=== PATIENT | female | born 2000 | race Caucasian/White ===

== ENCOUNTER 2023-01-03 15:36 | Emergency (ER) | payer OTHER, SELFPAY ==
--- NOTE | ~2023-01-03 | XR_ITS ---
XR knee RT min 4V 01/03/2023 16:21 INDICATION: Right knee pain after injury PROCEDURE: 4 views right knee COMPARISON: 03/18/2015 FINDINGS: Fracture, dislocation or subluxation is not identified. No significant joint effusion. The soft tissues appear within normal limits. No foreign bodies are identified. IMPRESSION: 1: NO ACUTE BONE OR JOINT ABNORMALITY IDENTIFIED. Reviewed, dictated and finalized at location L.
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
[2023-01-03 15:52] VITALS: BP 102/59; PULSE 106; RESP 16; TEMP 37.7; O2SAT 100
[2023-01-03 15:55] VITALS: BP 102/59; PULSE 106; RESP 16; TEMP 37.7; O2SAT 100
== END 2023-01-03 17:05 | disposition home or self-care (01) ==
PROVIDERS: Emergency Provider Nurse Practitioner
DX: S80.01XA Contusion of right knee, initial encounter (principal); W27.8XXA Contact with other nonpowered hand tool, initial encounter; Y99.0 Civilian activity done for income or pay
CPT/HCPCS: 73564; 99213; G0463

== ENCOUNTER 2024-05-08 07:23 | Emergency (ER) | payer OTHER, SELFPAY ==
[2024-05-08] VITALS (39 sets, daily range): BP systolic 99–145; BP diastolic 64–97; PULSE 64–99; RESP 4–24; TEMP 36.3–37; O2SAT 83–100
--- NOTE | ~2024-05-08 | XR_ITS ---
XR wrist RT 2V Ordering provider: Rick Lopez MD History: . reduction . Comparison: May 08, 2024 FINDINGS: BONES: Comminuted fracture in the distal radius extending to the joint space. Status post reduction. Fracture of the ulnar styloid. The angulation is corrected. Status post placement in a cast. JOINT SPACES: Normal. SOFT TISSUES: Normal. IMPRESSION: Comminuted fracture in the distal radius status post reduction with placement in a cast. Reviewed, dictated and finalized at location A. IMPRESSION: Comminuted fracture in the distal radius status post reduction with placement i n a cast.
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
--- NOTE | ~2024-05-08 | XR_ITS ---
EXAMINATION: XR knee RT 3V DATE: 05/08/2024 08:04 INDICATION: Trauma. Right suprapatellar pain. TECHNIQUE: Anteroposterior, oblique and crosstable lateral views of the right knee were obtained COMPARISON: None. FINDINGS: Alignment is normal. No fracture. Joint spaces appear normal on the nonweightbearing imaging with no erosions or osteophytosis. No joint effusion/layering lipohemarthrosis. Soft tissues are unremarkabl e. IMPRESSION: 1. Negative right knee radiographs. Reviewed, dictated and finalized at location A.
[2024-05-08] MEDS: MORPHINE SULFATE (*CRX) 4 MG/ML INJ IV PUSH (07:53)
[2024-05-08] MEDS: PROPOFOL IV EMULSION 200 MG/20 ML VIAL 60 MG IV PUSH (09:10)
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
[2024-05-08] MEDS: HYDROcodone/acetaminophen (*CRX) 5-325 MG TABLET 1 TAB PO (09:57)
[2024-05-08] MEDS: diazePAM INJ (*CRX) 10 MG/2 ML SYRINGE 5 MG IV PUSH (10:43)
== END 2024-05-08 12:42 | disposition home or self-care (01) ==
PROVIDERS: Emergency Provider Emergency Medicine
DX: S59.291A Other physeal fracture of lower end of radius, right arm, initial encounter for closed fracture (principal); S52.611A Displaced fracture of right ulna styloid process, initial encounter for closed fracture; V03.00XA Pedestrian on foot injured in collision with car, pick-up truck or van in nontraffic accident, initial encounter
CPT/HCPCS: 25605; 73100; 73562; 96374; 96375; 99285; A4565; A9270; J2270; J2704; J3360

== ENCOUNTER 2024-05-15 02:24 | Day surgery (SDC) | payer OTHER, SELFPAY ==
--- NOTE | 2024-05-10 14:48 | PC.NURSE ---
Report to the Outpatient Waiting Room, entrance under the green pavilion located off [facility], at time _1100_ on date _[id number]_. Planned Procedure Time: _1pm_.? Time changes happen often and if your time is changed the preop area will call you the afternoon before. - You and your visitor will be asked to self-screen and do not enter if you have any COVID symptoms. Please call surgeon if you need to reschedule. - A mask is optional within the hospital at this time. Patients may have clear liquids (water, carbonated beverages, clear teas, apple juice) until 3 hours prior to surgery with a maximum of 20 ounces. - No food from midnight until time of surgery and no smoking Take only the following medications with a SIP of water on the morning of surgery: __Hydrocodone if needed. DO NOT STOP ANY OF YOUR OTHER PRESCRIPTION MEDICATIONS PRIOR TO SURGERY EXCEPT THE FOLLOWING Medications to discontinue per physician ____None Date to take last dose Please no make-up, nail liberian, hairspray, perfume, deodorant, or body powder the day of surgery.? No jewelry (including any body piercings) or valuables the day of surgery, leave them at home.? Please take a shower or bath the night before, or the morning of, surgery with an antibacterial soap.? Wear comfortable, loose fitting clothing.? - Jewelry must be removed prior to entering the operating room.? Rings and piercings that are not removed may be cut off. - The hospital will not accept responsibility for valuables.? - Please leave all valuables, including medications, at home the day of surgery. If you are going home after surgery, a licensed garbage truck driver must drive you home.? - NO public transportation without another adult if you receive anesthesia. - We recommend that an adult stay with you for 24 hours following discharge. - We also recommend that you do not drive, make important decision, drink alcoholic beverages, or take any drugs that were not prescribed by your health care provider for at least 24 hours after your discharge time. Follow any additional instructions given to you from your surgeon. Telephone instructions given to ___Madison__and asked if any additional questions and then verbalized understanding. Patient advised to call surgeon office or pre surgery nurse liaison [phone] if any additional questions.
[2024-05-10 14:52] VITALS: BMI 20.6
[2024-05-15] VITALS (11 sets, daily range): BP systolic 109–142; BP diastolic 59–85; PULSE 92–111; RESP 12–17; TEMP 36.4–36.8; O2SAT 97–100
--- NOTE | ~2024-05-15 | XR_ITS ---
EXAMINATION: XR surgery orthopedic DATE: 05/15/2024 14:37 INDICATION: ORIF right wrist fracture TECHNIQUE: 3 fluoroscopic images of the right wrist were obtained during procedure performed by Dr. Min mariscal. Radiologist was not present for the imaging or procedure. The amount of fluoroscopy time used during this procedure was 0.5 minutes. Total DAP was 0.017 mGym^2 COMPARISON: 05/08/2024 FINDINGS: Interval open reduction and external fixation of the comminuted intra-articular fracture of the dista l right radius. The prior dorsal displacement and angulation has been reduced to near-anatomic alignm ent with placement of a volar T plate and screw fixation. No significant interval change in 3-4 mm di straction of an ulnar styloid avulsion fracture which remains unfixed. Normal alignment and joint spa mohini at the visualized portion of the right hand. IMPRESSION: 1. Near-anatomic alignment post open reduction internal fixation of a comminuted intratrochanteric fr acture of the distal right radius. 2. Unchanged 3-4 mm distraction of and ulnar styloid avulsion fracture which remains unfixed. Reviewed, dictated and finalized at location A. IMPRESSION: 1. Near-anatomic alignment post open reduction internal fixation of a comminute d intratrochanteric fracture of the distal right radius. 2. Unchanged 3-4 mm distraction of and ulnar styloid avulsion fracture which re anjelica unfixed.
[2024-05-15] MEDS: ACETAMINOPHEN 500 MG TABLET 1000 MG PO (11:20)
[2024-05-15] MEDS: KETOROLAC 15 MG/ML VIAL (*BKC) IV PUSH (11:20)
[2024-05-15] MEDS: LACTATED RINGERS 1,000 ML 30 ML IV CONT ×2 (11:20→14:54)
[2024-05-15 11:41] LABS: BEDSIDEPREGUCG Negative (Negative)
--- NOTE | 2024-05-15 12:51 | WPDHPUPDATE1 ---
History and Physical Update Update Date/Time: 05/15/24 12:51 History and Physical has been reviewed, including an updated exam of the patient. There are NO changes in the patient's condition. Risks, benefits, and alternatives have been discussed and questions answered. Patient agrees to proceed with procedure.
--- NOTE | 2024-05-15 12:57 | P.PNAN_ITS ---
Anes - Initial Pre Proc Eval Procedure: Operation Date: 05/15/24 13:00 Proposed Procedures p Open Reduction Internal Fixation Right Wrist Fracture - Laci Subramanian MD Date/Time: 05/15/24 12:57 Surgeon: Laci Subramanian MD Pre Op Diagnosis: Rt Wrist Fx Patient Data Age: 23 Gender: F Height: 1.63 m Weight: 51 kg Last Vital Signs Temp 36.8 C 05/15/24 11:20 Pulse 103 H 05/15/24 11:20 Resp 14 05/15/24 11:20 BP 109/59 L 05/15/24 11:20 Pulse Ox 100 05/15/24 11:20 O2 Del Method Room Air 05/15/24 11:20 Allergies Allergy/AdvReac Type Severity Reaction Status Date / Time No Known Allergies Allergy Verified 05/15/24 11:40 Home Medications Medication Instructions Recorded Confirmed Type hydrocodone 5 mg-acetaminophen 325 1 tablet PO Q6H PRN pain #20 tabs 05/10/24 05/10/24 Rx mg tablet tizanidine 2 mg capsule 2 mg PO Q8H PRN muscle spasticity 05/10/24 05/10/24 Rx #14 caps Laboratory Tests 05/15/24 11:39 POC Urine HCG, Qual Negative (Negative) HCG: negative Patient hx anesthesia problems: none Family hx anesthesia problems: none Results Review: All pre-operative results and documents have been reviewed as part of the pre- operative evaluation. [facility], LAT[facility] Past Medical History Medical History Closed fracture of right distal radius Healthy female adult Surgical History Surgical History No history of previous surgery Social History Social History Smoking status: Never smoker Living arrangements: with family Spiritual care concerns: No Anes - Eval Final PreProcedure Day of Procedure 05/15/24 12:57 Patient weight: normal Heart: regular rate and rhythm Lungs: clear to auscultation Airway: Mallampati scale class 1 Neurological: alert and oriented Last oral intake: >/= 8 hours ASA classification: I Emergent: no Anesthetic plan: proceed Anesthesia type and monitoring: general LMA Results Review: All pre-operative results and documents have been reviewed as part of the pre- operative evaluation. Informed Consent: The patient's anesthetic plan and its attendant risks and benefits were discussed with the patient/family/POA. Questions were solicited and answers provided to the satisfaction of the patient/family/POA.
[2024-05-15] MEDS: ceFAZolin 2 GM/D5W 50 ML 2 GM/50 ML BAG IVPB (13:10)
[2024-05-15] MEDS: ONDANSETRON INJ 4 MG/2 ML VIAL IV PUSH (15:12)
[2024-05-15] MEDS: fentaNYL CITRATE INJ (*CRX) 100 MCG/2 ML VIAL 25 MCG IV PUSH (15:25)
--- NOTE | 2024-05-15 15:31 | W.PM.PROC2 ---
Procedure Note - Detailed Date of Procedure 05/15/24 Pre-op Diagnosis Rt Wrist Fx- comminuted with intra-articular extension and displacement. Post-op Diagnosis Same Procedure Performed Open reduction internal fixation right distal radius fracture, intra-articular, comminuted. 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 Comminuted fracture of the distal radius. Close reduction in the emergency room. Alignment improved but still with intra-articular extension, comminution, displacement and angulation. Presents for operative treatment. Findings Comminuted fracture distal radius with more than 4 fragments, intra-articular extension. Description of Procedure After informed consent the operative extremity was marked in the preoperative holding area. Patient received intravenous antibiotics. Patient taken to the operating room where they underwent general anesthesia. Positioned supine on operating table. Time-out performed confirming the patient, patient's site of surgery and the plan. Right upper extremity prepped and draped in the usual sterile surgical fashion using a ChloraPrep skin solution. Hand and wrist exsanguinated and arm tourniquet inflated to 225 mmHg. Standard volar flexor carpi radialis incision utilized. Fifteen blade knife used to make longitudinal incision. Flexor carpi radialis tendon identified tendon sheath incised in line with skin incision. Tendon retracted to protect the neurovascular elements. Floor of the tendon sheath incised with a 15 blade knife. Flexor pollicis retracted medial. pronator quadratus then divided off the watershed line and reflected ulnarward to expose the distal radius and the fracture. Fracture was then reduced provisionally pinned. Image intensification confirm reduction. Fixation achieved with the distal radius volar plate. This was provisionally pinned into place and confirmed with image intensification. Fixation to the proximal fragment with a 3.5 mm screw. Distal fracture fixation achieved with 2.0 mm locking pegs and 2.0 mm fully threaded locking screws for the radial styloid. Fixation was then completed proximally with the remaining 3.5 mm screws. Final reduction of the fracture, alignment of the wrist joint and placement of the hardware verified with image intensification. Wound thoroughly irrigated with antibiotic solution. Pronator repaired with 3 0 Monocryl interrupted suture. Skin closed with interrupted subcutaneous 000 Monocryl interrupted suture and running 000 Monocryl subcuticular stitch. Local anesthetic with 0.5% Marcaine. Sterile dressing applied. Padded dressing and splint then applied. Tourniquet released and good capillary refill noted in the fingers and thumb. Patient awoke from anesthesia, extubated and taken to the recovery room in stable condition. All sponge and instrument counts correct at the end of case. [employer] volar distal radius locking plate. Estimated Blood Loss 5 Tourniquet Time Total Tourniquet Time: 59min Drains No Packing No Pathology None sent Complications None Condition Stable Disposition PACU [facility] Billing Surgery - Charge Forward: Surgery Billing ([id number])
[2024-05-15] MEDS: SCOPOLAMINE 1 MG PATCH 1 PATCH TRANSDERM (15:49)
== END 2024-05-15 17:25 | disposition home or self-care (01) ==
PROVIDERS: Visit Provider Orthopaedic Surgery
PROC: (CPT 25575; principal; 2024-05-15 13:00)
DX: S52.571A Other intraarticular fracture of lower end of right radius, initial encounter for closed fracture (principal); Z79.891 Long term (current) use of opiate analgesic; W23.1XXA Caught, crushed, jammed, or pinched between stationary objects, initial encounter
CPT/HCPCS: 25609; 99199; A9270; C1713; J0690; J1100; J1171; J1885; J2405; J2704; J3010; J7120

== ENCOUNTER 2024-11-15 08:28 | Inpatient (IN) | payer OTHER, SELFPAY ==
[2024-11-15] VITALS (27 sets, daily range): BP systolic 103–126; BP diastolic 47–83; PULSE 71–127; RESP 12–20; TEMP 36.6–37.1; O2SAT 96–100; BMI 19.9
--- NOTE | ~2024-11-15 | XR_ITS ---
EXAMINATION: XR chest 1V portable DATE: 11/16/2024 13:38 INDICATION: Right pneumothorax TECHNIQUE: frontal view of the chest was obtained. COMPARISON: Chest radiograph dated 11/16/2024 at 5:22 AM FINDINGS: No change in position of a right sided chest tube, the proximal side-port which is extrapleural proje cting over the lateral right chest wall. No residual pneumothorax. Lungs are clear with no focal airs pace opacities, pulmonary edema or pleural effusion. Heart size is normal. IMPRESSION: 1. Clear lungs with resolution of the prior tiny right apical pneumothorax. 2. Unchanged right chest tube the proximal side-port of which remains extrapleural projecting over th e lateral right chest wall. Reviewed, dictated and finalized at location A. IMPRESSION: 1. Clear lungs with resolution of the prior tiny right apical pneumothorax. 2. Unchanged right chest tube the proximal side-port of which remains extrapleu ral projecting over the lateral right chest wall.
--- NOTE | ~2024-11-15 | XR_ITS ---
CHEST RADIOGRAPH CLINICAL HISTORY: chest tube insertion; repositioned . COMPARISON: Two prior radiographs performed earlier on the same day TECHNIQUE: Single portable view of the chest. FINDINGS The cardiomediastinal silhouette is unremarkable. Right-sided chest tube in good position with only trace minimal residual pneumothorax (11 mm of separ ation at the right apex). The left hemithorax is unremarkable. IMPRESSION: Right-sided chest tube in good position with only trace minimal residual pneumothorax, as detailed ab ove. Reviewed, dictated and finalized at location A. IMPRESSION: Right-sided chest tube in good position with only trace minimal residual pneumo thorax, as detailed above.
--- NOTE | ~2024-11-15 | XR_ITS ---
EXAMINATION: XR chest 1V portable DATE: 11/16/2024 05:26 INDICATION: Right-sided pneumonia TECHNIQUE: frontal view of the chest was obtained. COMPARISON: Chest radiograph dated 11/15/2024 FINDINGS: The right-sided chest tube has withdrawn with the proximal side port now positioned extrapleurally in the soft tissues at the lateral right chest with there is small amount of soft tissue gas. Decrease in a now tiny right apical pneumothorax. No focal airspace opacities, pulmonary edema pleural effusio n. The cardiomediastinal silhouette is normal. Visualized bones and soft tissues are unremarkable. IMPRESSION: 1. Right chest tube was withdrawn with proximal side-port now extrapleural in the lateral right chest wall. 2. Decrease in a now tiny right pneumothorax. Reviewed, dictated and finalized at location A. IMPRESSION: 1. Right chest tube was withdrawn with proximal side-port now extrapleural in t he lateral right chest wall. 2. Decrease in a now tiny right pneumothorax.
--- NOTE | ~2024-11-15 | XR_ITS ---
EXAMINATION: XR chest 1V portable DATE: 11/17/2024 07:36 INDICATION: Pneumothorax TECHNIQUE: frontal view of the chest was obtained. COMPARISON: Chest radiograph dated 11/16/2024 FINDINGS: Right chest tube is been removed. The lungs are clear with no focal airspace opacities, pulmonary mila ma, pleural effusion or pneumothorax. The cardiomediastinal silhouette is normal. Visualized bones an d soft tissues are unremarkable. IMPRESSION: 1. Interval removal of the right chest tube with now normal chest radiograph. Reviewed, dictated and finalized at location A.
--- NOTE | ~2024-11-15 | XR_ITS ---
XR chest 2V 11/15/2024 09:15 Indication: Chest pain and shortness of breath Procedure: 2 view chest Comparison: No prior studies for comparison. Findings: There is a moderate size right pneumothorax with mediastinal shift to the right. There is l eft basilar atelectasis. No significant effusion. No acute osseous abnormality. Impression: 1: Moderate size right pneumothorax with mediastinal shift to the left. Dr. Tucker Ken discussed with Dr. Filiberto Apple MD at 11/15/2024 9:27 CDT. Reviewed, dictated and finalized at location A. Impression: 1: Moderate size right pneumothorax with mediastinal shift to the left. Dr. Tucker Ken discussed with Dr. Filiberto Apple MD at 11/15/2024 9:27 CDT.
--- NOTE | ~2024-11-15 | XR_ITS ---
XR chest 1V portable Ordering provider: Antonieta Bustos MD History: 24 years Female with . chest tube placement . Comparison: November 16, 2024 FINDINGS/impression: No change from previous examination. The right chest tube is unchanged with the sidehole is seen outs ambrose the chest. No definite pneumothorax seen at this time. Reviewed, dictated and finalized at location A.
--- NOTE | ~2024-11-15 | XR_ITS ---
EXAMINATION: XR chest-chest tube insert/pos DATE: 11/15/2024 11:06 INDICATION: Chest tube placement TECHNIQUE: frontal view of the chest was obtained. COMPARISON: Chest radiograph dated 11/15/2024 at 9:11 AM FINDINGS: Interval placement of a right-sided chest tube with distal tip projecting over the region of the righ t hilum. There is been progressive collapse of the right lung with increase in size of a now moderate to large right pneumothorax. There is increasing right to left midline shift of the sized heart and mediastinum. Expected small amount of right-sided lateral chest wall gas related to chest tube insert ion. IMPRESSION: 1. Interval placement of a right-sided chest tube with increase in size of a now moderate to large ri ght pneumothorax with increasing collapse of the right lung and [id number] midline shift consisten t with tension pneumothorax. Per discussion with Dr. Apple the patient tube repositioned and a sub sequent radiograph was obtained. Follow-up radiographs demonstrate near complete resolution of the ri ght-sided tension pneumothorax. See separate dictation for further detail. Reviewed, dictated and finalized at location A. IMPRESSION: 1. Interval placement of a right-sided chest tube with increase in size of a no w moderate to large right pneumothorax with increasing collapse of the right diego ng and [id number] midline shift consistent with tension pneumothorax. Per di scussion with Dr. Apple the patient tube repositioned and a subsequent radio graph was obtained. Follow-up radiographs demonstrate near complete resolution of the right-sided tension pneumothorax. See separate dictation for further det ail.
--- NOTE | 2024-11-15 08:32 | ECG_ITS ---
Test Date: 2024-11-15 08:40:26 Measurements Intervals [place] Rate: 89 P: 60 FL: 129 QRS: 65 QRSD: 85 T: 35 QT: 348 QTc: 424 Interpretive Statements SINUS RHYTHM BASELINE ARTIFACT- II, III, AVR, AVL, AVF NORMAL ECG No previous ECG available for comparison Electronically Signed On 11-15-2024 08:45:26 CDT by Kuldeep Ramirez D.O.
--- OUTSIDE RECORDS SUMMARY | 2024-11-15 08:39 | XMS_ITS | Clinical Summary ---
Author Organization [facility] Address [facility] [place] [address] Care Team Providers Care Sales And Marketing Vice President Name Role Phone FrancaAshly, Joao MIRAMONTES Primary Care Provi reynaldo Allergies No known active allergies Medications etonogestrel 68 MG SC implantIndications :Encounter for contraceptive management, unspecified type 1 each (68 mg total) by Implant route once for 1 dose. 1 each Active Active Problems Problem Noted Date Diagnosed Date Abdominal bloating 05/10/2019 Contraception management 04/19/2018 Asthma (HHS/HCC) 02/27/2018 Tonsil stone 02/27/2018 Resolved Problems Problem Noted Date Diagnosed Date Resolved Date Near syncope 07/23/2018 01/14/2021 Need for Menactra vaccination 04/19/2018 04/03/2020 Concussion 03/23/2018 01/14/2021 Head trauma in pediatric patient 03/20/2018 01/14/2021 Post-concussion headache 03/20/2018 Sore throat 02/27/2018 01/14/2021 Syncope 11/03/2015 04/12/2019 Overview (06/13/2018): Last Assessment & Plan: Reba Caicedo is a 15 y.o. female with a history of syncopal episodes that are consistent with vasovagal syncope. Her cardiac studies including EKG, echocardiogram and holter monitor are all normal and her cardiac exam is within normal limits. Since her hydration is not optimal, I would recommend starting with this and we can see how her symptoms do. Plan: 1. Encouraged increased fluid intake with goal of 64 ounces of caffeine-free fluid per day as well as increased salt intake. 2. Discussed maneuvers to try to avoid syncope when she feels presyncopal and gave family an education sheet regarding these maneuvers. 3. Exercise is generally good for these patients and helps vasomotor tone in the lower extremities; she may continue physical activity without restrictions. Would recommend good hydration prior to and during intensive activities. 4. If her symptoms fail to improve or worsen, asked family to contact us and we could consider medication to help with the syncopal episodes. 5. She does not require SBE prophylaxis. Knee pain 03/18/2015 01/14/2021 Right foot injury 12/11/2014 04/12/2019 Headache 07/04/2014 01/14/2021 Nausea with vomiting 07/04/2014 021 Nausea 07/04/2014 04/12/2019 Pharyngitis 07/04/2014 04/12/2019 Lipoma 01/30/2014 01/14/2021 Cough 06/11/2012 01/14/2021 Well child visit 05/18/2012 04/03/2020 Immunizations Immunization Administration Dates Next Due Dtap 06/08/2001,04/06/2001,01/26/2001 Hepatitis B Pediatric 06/08/2001,03/23/2001,10/23 Hib 06/08/2001,04/06/2001,01/26/2001 Influenza Adult (Generic) 04/22/2019 Menactra 04/19/2018,02/05/2015 Meningococcal Vac A,C,Y,W-135 Sc 04/19/2018,01/21 Pneumococcal (Prevnar 7) 04/06/2001,01/26/2001 Polio IPV (Ipol) 06/08/2001,04/06/2001, 1 Social History Tobacco Use Types Packs/Day Years Used Date Smoking Tobacco: Never Smokeless Tobacco: Never Alcohol Use Standard Drinks/Week Comments No 0 (1 standard drink = 0.6 oz pur e alcohol) PHQ-2 Answer Date Recorded PHQ-2 Score - If the patient scores above 3, please move on to questions 3-9 0 01/14/2021 Comments No Sex and Gender Information Value Date Recorded Sex Assigned at Not on file Legal Sex Female 7:26 PM CDT Gender Identity Not on file Sexual Orientation Not on file Last Filed Vital Signs Vital Sign Reading Time Taken Comments Blood Pressure 110/78 01/14/2021 8:18 AM CDT Pulse 84 01/14/2021 8:18 AM CDT Temperature 36.8 C (98.2 F) 01/14/2021 8:18 AM CDT Respiratory Rate 16 01/14/2021 8:18 AM CDT Oxygen Saturation 98% 01/14/2021 8:18 AM CDT Inhaled Oxygen Concentration - - Weight 53.5 kg (118 lb) 01/14/2021 8:18 AM CDT Height 165.1 cm (5' 5 ) 01/14/2021 8:18 AM CDT Body Mass Index 19.64 01/14/2021 8:18 AM CDT Plan of Treatment Health Maintenance Due Date Last Done Comments Cervical Cancer Screening Pap Smear (Age 21 to 29) Every 3 Years 2000 Cervical Cancer Screening 2000 HPV Vaccines (1 - 3-dose series) 11/17/2015 Meningococcal B Vaccine (1 of 2 - Standard) 2016 Hepatitis C 2018 DTaP, Tdap and Td Vaccines (4 - Tdap) 11/17/2019 06/08/2001, 04/06/2001, 01/26/2001 Pneumococcal Vaccine: Pediatrics (0 to 5 Years) and At-Risk Patients (6 to 49 Years) (1 of 2 - PCV) 11/17/2019 04/06/2001, 01/26/2001 Annual Physical 01/14/2022 01/14/2021 COVID-19 Vaccine (3 - season) 2024 12/31/2020, 12/10/2020 Hepatitis B Vaccines Completed 06/08/2001, 03/23/2001, 2000 Meningococcal Vaccine Completed 04/19/2018 , 04/19/2018, 02/05/2015, Additional history exists RSV Immunizations Under 20 Months Aged Out No longer eligible based on patient's age to complete this topic Insurance Care Teams Sales And Marketing Vice President Relationship Specialty Start Date End Date Joao Butterfield APNP PCP - General Nurse Practitioner Family 01/12/21
--- OUTSIDE RECORDS SUMMARY | 2024-11-15 08:39 | XMS_ITS | Data Portability ---
Author Organization [facility] Address [address] [facility] [place] [address] Assessment No assessment recorded. Plan of Treatment Reminders Order Date Submit Date Provider Last Modified By Organization Details Last Modified Time Details Appointments None recorded. Lab None recorded. Referral gynecologis t referral 2019 020 [email or web address] [facility], [address], [address], [place], [address], 0 14:49:59 Procedures None recorded. Surgeries None recorded. Imaging None recorded. Medication Orders None recorded. Patient TargetsNo targets recorded. 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 Co ntraception care management would like to discuss nexplanon Referring Physician: Nano Cota, Family Medicine, Encounter Date: 08/02/2019 Problems Name Problem SNOMED Code Status Onset Date Resolution Date Notes Provider Name and Address Organization Details Recorded Time No current problems or disability 294194057 Active Ernestina Snyder CMA null, [facility] 0 10:16:50 Asthma 068096735 Active 2019 NANO COTA CNP [address], [place], [address], [facility] 0 10:30:24 Contraceptio n care management Active 2019 NANO COTA CNP [address] [facility],[address], [place], [address], [facility] 0 10:30:25 Finding of body mass index 848257077 Active 2019 NANO COTA CNP [address] [facility] [address] [facility],[address], [place], [address], [facility] 0 10:30:26 Problem Notes None recorded. Medical Equipment None Reported. Allergies No known drug allergies Medications Not known to be on any medication Vitals Date Recorded Body weight Body mass index (BMI) Body mass index (BMI) [Percentile] Per age and sex Body height Heart rate Oxygen saturation Oxygen saturation in Arterial blood by Pulse oximetry Systolic blood pressure Diastolic blood pressure Provider Name and Address Organization Details Last Updated DateTime 0 82785.3 5 g 18.6 kg/m2 12 % 165.1 cm 63 /min 99 % 99 % 110 mm[Hg] 62 mm[Hg] Ernestina Snyder CMA [facility] 0 10:15:14 Social History Question Answer Notes LastModified by [facility] Details LastModified Time Tobacco Smoking Status Never Smoker Ernestina Snyder CMA null, [facility] 08/02/2019 10:17:00 RISK STRATIFICATION SCORE 1: Healthy [email or web address] Information not available 08/02/2019 Sex: Unknown Functional Status None recorded. Mental Status None recorded. Family History Nothing Reported. Medical History No medical history recorded. Gynecological HistoryNo gynecological history recorded. Obstetrics History GPAL:G 0 P 0 0 0 0 Past Encounters Encounter ID Performer Location Encounter Start Date Encounter Closed Date Diagnosis/Indication Diagnosis SNOMED-CT Code Diagnosis ICD10 Code Diagnosis Note [id number] NANO COTA CNP [facility] [address] [place] [address] 08/02/2019 09:52:46 08/02/2019 10:34:38 Finding of body mass index 000724703 Z68.52 Contracept ion care management 816938277 Z30.9 Asthma 190047185 J45.90 9 Health Concerns Section Related Observation LastModified by Organization Detai ls LastModified Time None Recorded Concern Status LastModified by Organization Details LastModified Time None Recorded Advance Directives Directive None Recorded Payers Encounter Date Sequence Insurance Name Policy Number Policy Kaur Covered Member ID Kaur Member ID Guarantor Name 08/02/2019 1 [place] [id number] Jennifer Collado Marifer [id number] Leslie Collado Marifer Notes Date Note Type Note Provider Name and Address Organization Details Recorded Time 08/02/2019 text/html Pt new to practice, here to establish care. Pt would like to discuss starting new control. She had been taking depo-provera for past year, is 1 month past due. She recently moved to [place] to go to [employer]. Pt would like to stop depo and get the nexplanon. NANO COTA, [employer] [address] [facility],[address], [place], [address], [facility] 08/02/2019 10:31:32 OBGyn Episode No OBEpisode recorded.
--- OUTSIDE RECORDS SUMMARY | 2024-11-15 08:39 | XMS_ITS | Encounter Summary ---
Author Organization [facility] Address Pending sale to [facility] [place] [address] Care Team Providers Care Occupational Safety And Health Manager Name Role Phone Viktor Amos MD Primary Care Provider [phone] Joao Butterfield Primary Care Provi reynaldo Encounter Details Date Type Department Care Team (Late st Contact Info) Description 05/10/2019 [employer] Message [facility] Family [address] [address] Liliane Bansal [facility] RE: Medication Questions Social History Tobacco Use Types Packs/Day Years Used Date Smoking Tobacco: Never Smokeless Tobacco: Never Alcohol Use Standard Drinks/Week Comments No 0 (1 standard drink = 0.6 oz pur e alcohol) Comments No Sex and Gender Information Value Date Recorded Sex Assigned at Not on file Legal Sex Female 7:26 PM CDT Gender Identity Not on file Sexual Orientation Not on file documented as of this encounter Plan of Treatment Not on file documented as of this encounter Visit Diagnoses Not on filedocumented in this encounter Care Teams Occupational Safety And Health Manager Relationship Specialty Start Date End Date Viktor Amos MD PCP - General FAMILY PRACTICE 06/22/18 01/11/21 Joao Butterfield APNP PCP - General Nurse Practitioner Family 01/12/21 documented as of this encounter
--- OUTSIDE RECORDS SUMMARY | 2024-11-15 08:39 | XMS_ITS | Clinical Summary ---
Author Organization [facility] Address [address] [place] [address] Care Team Providers Care Awake Overnight Counselor Name Role Phone James Huston MD Primary Care Provide r Source Comments [facility],non-owned Affiliates and Associated Physician Practices is amultiple site organization consisting of ambulatory clinics and hospital sitesin [place], [place], [place] and [place]. This disclosure is being madepursuant to the Care Everywhere program and may not contain all information available regarding this patient. Last updated 18.[facility] Allergies No known active allergies Medications * Be aware that medications may not be up to date on this document. Alwaysverify current medications with the patient. multivitamins plus minerals chew tablet Take 1 Tab by mouth daily with food Active Active Problems Problem Noted Date Diagnosed Date Syncope 12/25/2015 Assessment & Plan (12/25/2015 11:24 AM CDT): Leslie Caicedo is a 15 y.o. female with [...] 5. She does not require SBE prophylaxis. Right foot injury 12/11/2014 Family History Medical History Relation Name Comments Arrhythmia Neg Hx CVA<55(male) Neg Hx CVA<65(female) Neg Hx Cardiomyopathy Neg Hx Congenital Heart defect Neg Hx Heart Surgery Neg Hx Long QT Syndrome Neg Hx IL<55(male) Neg Hx IL<65(female) Neg Hx Marfan Syndrome Neg Hx Pacemaker Neg Hx Sudd. <30 Neg Hx Social History Tobacco Use Types Packs/Day Years Used Date Smoking Tobacco: Never Alcohol Use Standard Drinks/Week Comments No 0 (1 standard drink = 0.6 oz pur e alcohol) Comments No Sex and Gender Information Value Date Recorded Sex Assigned at Not on file Legal Sex Female 9:45 AM CDT Gender Identity Not on file Sexual Orientation Not on file Last Filed Vital Signs Vital Sign Reading Time Taken Comments Blood Pressure 110/68 12/24/2015 3:59 PM CDT Pulse 84 12/24/2015 3:59 PM CDT Temperature 36.8 C (98.2 F) 12/25/2014 1:12 PM CDT Respiratory Rate 18 12/24/2015 3:59 PM CDT Oxygen Saturation 97% 12/24/2015 3:59 PM CDT Inhaled Oxygen Concentration - - Weight 52.4 kg (115 lb 8.3 oz) 12/24/2015 3:59 P M CDT Height 160 cm (5' 2.99 ) 12/24/2015 3:59 PM CDT Body Mass Index 20.47 12/24/2015 3:59 PM CDT Plan of Treatment Health Maintenance Due Date Last Done Comments HIV SCREENING 11/17/2015 HPV VACCINE (1 - 3-dose series) 11/17/2015 CHLAMYDIA/GONORRHEA SCREENING 2016 MENINGOCOCCAL (Group B) VACC INE SHARED DECISION-MAKING (1 of 2 - Standard) 2016 HEPATITIS C SCREENING 11/12/2018 DTAP/TDAP/TD VACCINES (1 - Tdap) 11/17/2019 HEPATITIS B VACCINE (1 of 3 - 19+ 3-dose series) 11/17/2019 COVID-19 VACCINE (1 - 2023-2 5 season) 2024 DEPRESSION SCREENING 07/24/2024 INFLUENZA VACCINE (Season Ended) 2025 ZOSTER VACCINE (1 of 2) 2050 HIB VACCINE Aged Out No longer eligi ble based on patient's age to complete this topic MENINGOCOCCAL GROUPS A/C/Y/W VACCINE Aged Out No longer eligible b ased on patient's age to complete this topic PNEUMOCOCCAL VACCINE Aged Out No long er eligible based on patient's age to complete this topic Insurance ANTH Care Teams Awake Overnight Counselor Relationship Specialty Start Date End Date James Huston MD PCP - General Family Medicine 11/06/14
--- OUTSIDE RECORDS SUMMARY | 2024-11-15 08:39 | XMS_ITS | Encounter Summary ---
Author Organization [facility] Address [facility] [place] [address] Care Team Providers Care Business Operations Specialist Name Role Phone Viktor Amos MD Primary Care Provider [phone] Joao Butterfield Primary Care Provi reynaldo Encounter Details Date Type Department Care Team (Late st Contact Info) Description 04/22/2019 [employer] Message [employer] [facility] Medical [facility] Family [address] [address] Liliane Bansal F[facility]ENCOM[facility] RE: Follow Up/Update Social History Tobacco Use Types Packs/Day Years [...] on filedocumented in this encounter Care Teams Business Operations Specialist Relationship Specialty Start Date End Date Viktor Amos MD PCP - General FAMILY PRACTICE 06/22/18 01/11/21 Joao Butterfield APNP PCP - General Nurse Practitioner Family 01/12/21 documented as of this encounter
[2024-11-15] MEDS: ASPIRIN 81 MG CHEWABLE TABLET 324 MG PO (08:46)
--- NOTE | 2024-11-15 08:52 | ED_ITS ---
HPI - General Adult General Chief complaint: Shortness of Breath/Dyspnea Stated complaint: SOB, R. side chest tightness Time Seen by Provider: 11/15/24 08:33 History of Present Illness HPI narrative: 23-year-old female presents to the emergency department for evaluation right- sided chest tightness. Patient had a ganglion block a few days ago for chronic pain syndrome secondary to a wrist fracture. Patient does take gabapentin daily. Patient does have history of PTSD but denies any prior history of anxiety. Patient states the right-sided chest pain is worsened with deep inspiration. Patient denies any prior history of PE or DVT. Patient states that the symptoms started immediately after the procedure but did worsen this morning Related Data Home Medications ?Medication ?Instructions ?Recorded ?Confirmed ?Last Taken ?Type gabapentin 300 mg capsule 600 mg PO TID 09/11/24 11/15/24 11/14/24 History Allergies Allergy/AdvReac Type Severity Reaction Status Date / Time adhesive AdvReac Mild Rash Verified 11/15/24 08:44 Review of Systems 2 Review of Systems: All systems reviewed & are unremarkable except as noted in HPI and below PMFSH Past Medical History Medical History PTSD (post-traumatic stress disorder) Insomnia Closed fracture of right distal radius Healthy female adult Surgical History Surgical History No history of previous surgery Social History Social History Smoking status: Never smoker Alcohol intake: never Substance use: never Do You Feel Safe in your Home?: Yes Lack of Transportation: No Lack of Food: Never True Current Housing: I Have Housing Concerned About Future Housing: No Difficulty Paying Gas/Electric Bills: No Difficulty Paying for Meds: No Currently Unemployed: No Education: High School Diploma/GED Difficulty w/ Childcare or Family Care: No Living arrangements: with family Spiritual care concerns: No Exam 2 Narrative: APPEARANCE: Well appearing, no pain, no distress, well-nourished. HEAD: normocephalic, atraumatic. EYES: PERRLA/EOMI, conjunctivae clear. NOSE: Normal no drainage EARS:TMS clear with good light reflex. THROAT: Pharynx clear, no exudate. NECK: Supple. No adenopathy, no masses. RESPIRATORY: Airway patent, respirations nonlabored. Clear to auscultation bilaterally, no rales, rhonchi, wheezing. CARDIOVASCULAR: Regular rate and rhythm without murmurs rubs or gallops. ABDOMINAL: Soft, nontender, nondistended, normal bowel sounds MUSCULOSKELETAL: Moves all extremities. Strength/ROM intact, No edema, No calf tenderness. NEURO: Alert. Cranial nerves II through XII intact. Grossly SKIN: Warm, dry. Normal Color Course Vital Signs Vital signs: Vital Signs Temperature 98.3 F 11/15/24 08:33 Pulse Rate 83 11/15/24 08:33 Respiratory Rate 15 11/15/24 08:33 Blood Pressure 126/83 11/15/24 08:33 Pulse Oximetry 100 11/15/24 08:33 Oxygen Delivery Room Air 11/15/24 08:33 Temperature 97.9 F 11/15/24 16:03 Pulse Rate 107 H 11/15/24 16:03 Respiratory Rate 18 11/15/24 16:03 Blood Pressure 123/53 L 11/15/24 16:03 Pulse Oximetry 100 11/15/24 16:03 Oxygen Delivery Nasal Cannula 11/15/24 10:23 Oxygen Flow Rate 2 11/15/24 10:23 Procedures Chest Tube Chest Tube 1: Chest Tube Time: 11:07 Chest Tube Location: right Tube Type: quik thal Size of Tube (cm): 15 Chest Tube Prep: Yes betadine prep and sterile drapes applied Anesthetic: lidocaine 1% and with epi Incision Made With: #11 blade Procedure: seldinger technique Post Procedure: sutured to skin, sterile dressing applied and connected to Pluero Vac Tube Drainage: samuel of air Post Procedure CXR?: Yes Post Procedure: post CXR reviewed, placement appropriate and pneumo persistent Patient Tolerated Procedure: Yes Medical Decision Making MDM Narrative Medical decision making narrative: 23-year-old female presented emergency department for evaluation for worsening right-sided chest pain. Chest x-ray does show a right-sided pneumothorax. Case was discussed with surgery. Surgery did recommend placement of a thoracostomy tube. This was placed as described in the procedure note patient did feel improved. Initial imaging was taken with the patient lying supine and pneumothorax was not resolved fall and patient sat up patient had additional bubbling through the pleural VAC and subsequent imaging did show almost full resolution of the pneumothorax. Patient was admitted to surgery. Differential Diagnosis Differential Diagnosis: Pneumonia, pneumothorax Vital Signs Vital Signs: Vital Signs Temperature 98.3 F 11/15/24 08:33 Pulse Rate 83 11/15/24 08:33 Respiratory Rate 15 11/15/24 08:33 Blood Pressure 126/83 11/15/24 08:33 Pulse Oximetry 100 11/15/24 08:33 Oxygen Delivery Room Air 11/15/24 08:33 Temperature 97.9 F 11/15/24 16:03 Pulse Rate 107 H 11/15/24 16:03 Respiratory Rate 18 11/15/24 16:03 Blood Pressure 123/53 L 11/15/24 16:03 Pulse Oximetry 100 11/15/24 16:03 Oxygen Delivery Nasal Cannula 11/15/24 10:23 Oxygen Flow Rate 2 11/15/24 10:23 Lab Data Lab results reviewed: Yes I reviewed the patient's lab results. 11/15/24 08:48 11/15/24 08:48 Labs: Lab Results 11/15/24 11/15/24 11/15/24 Range/Units 08:48 08:48 09:41 WBC 11.4 H (4.5-10.0) K/mm3 RBC 4.70 (4.2-5.4) M/mm3 Hgb 14.2 (12.0-15.0) g/dL Hct 41.9 (37.0-47.0) % MCV 89.1 (80-100) fl MCH 30.2 (26-34) pg MCHC 33.9 (32-36) g/dl RDW 11.9 (11.5-14.5) % Plt Count 329 (150-375) k/mm3 MPV 9.2 (7.4-10.4) fl Immature Gran % (Auto) 0.4 (0-0.5) % Neut % (Auto) 70.4 (45.5-73.1) % Lymph % (Auto) 18.7 (18.3-44.2) % [place] % (Auto) 8.9 H (2.6-8.5) % Eos % (Auto) 1.2 (0-4.4) % Baso % (Auto) 0.4 (0.2-1.2) % Lymph # (Auto) 2.12 (0.9-3.2) K/mm3 [place] # (Auto) 1.0 H (0.1-0.6) K/mm3 Eos # (Auto) 0.1 (0-0.3) K/mm3 Baso # (Auto) 0.1 (0.0-0.1) K/mm3 Abs Immat Gran (auto) 0.04 H (0.00-0.031) K/mm3 Absolute Neuts (auto) 8.0 H (1.3-6.7) K/mm3 Absolute Nucleated RBC 0.000 (0.0-0.012) K/mm3 Nucleated RBC % 0.0 (0.0-0.2) % PT 14.0 (11.1-14.7) Seconds INR 1.0 APTT 28.7 (22.3-36.8) Seconds D-Dimer < 0.27 Cancelled (<0.48) ug/mL Sodium 139 (137-145) mmol/L Potassium 3.7 (3.4-5.0) mmol/L Chloride 104 (98-107) mmol/L Carbon Dioxide 23 (22-30) mmol/L Anion Gap 12 (4-12) mmol/L BUN 11 (7-17) mg/dL Creatinine 0.76 (0.7-1.0) mg/dL Estim Creat Clear Calc 84 ml/min Estimated GFR > 60 (59 - ) Glucose 90 (65-110) mg/dL Calcium 9.1 (8.4-10.2) mg/dL Total Bilirubin 0.8 (0.2-1.3) mg/dL AST 20 (14-36) U/L ALT 15 (6-35) U/L Alkaline Phosphatase 66 (38-126) U/L Troponin I < 0.012 (0.000-0.034) ng/mL Total Protein 8.0 (6.3-8.2) g/dL Albumin 4.9 (3.5-5.1) g/dL Lipase 76 (23-300) U/L POC Urine HCG, Qual Negative (Negative) Influenza A (RT-PCR) Negative (Negative) Influenza B (RT-PCR) Negative (Negative) RSV (RT-PCR) Negative (Negative) SARS-CoV-2 RNA (RT-PCR) Negative (Negative) Imaging Data Radiologist's impression: Impressions Chest X-Ray 11/15/24 09:26 Impression: 1: Moderate size right pneumothorax with mediastinal shift to the left. Dr. Tucker Ken discussed with Dr. Filiberto Apple MD at 11/15/2024 9:27 CDT. Chest X-Ray 11/15/24 11:08 IMPRESSION: 1. Interval placement of a right-sided chest tube with increase in size of a now moderate to large right pneumothorax with increasing collapse of the right lung and [id number] midline shift consistent with tension pneumothorax. Per discussion with Dr. Apple the patient tube repositioned and a subsequent radiograph was obtained. Follow-up radiographs demonstrate near complete resolution of the right-sided tension pneumothorax. See separate dictation for further detail. Chest X-Ray 11/15/24 11:13 IMPRESSION: Right-sided chest tube in good position with only trace minimal residual pneumothorax, as detailed above. Critical Care Time Critical Care Time Critical Care Time: Yes Total Critical Care Time: 35 Discharge Plan Discharge Clinical Impression: Pneumothorax Patient Disposition: Still a Patient Condition: Serious
[2024-11-15] MEDS: Please add drug allergy info to patient profile. 1 EACH XX (08:59)
[2024-11-15] MEDS: KETOROLAC 30 MG/ML VIAL (*BKC) IV PUSH (08:59)
[2024-11-15] MEDS: LORazepam INJ (*CRX) 2 MG/ML VIAL 1 MG IV PUSH (09:02)
[2024-11-15 09:07] LABS: Basophils Absolute Auto 0.1 K/mm3 (0.0-0.1); Basophils Percent Auto 0.4 % (0.2-1.2); Eosinophils Absolute Auto 0.1 K/mm3 (0-0.3); Eosinophils Percent Auto 1.2 % (0-4.4); Hematocrit 41.9 % (37.0-47.0); Hemoglobin 14.2 g/dL (12.0-15.0); Immature Granulocyte Absolute 0.04 K/mm3 (0.00-0.031); Immature Granulocyte Percent A 0.4 % (0-0.5); Lymphocytes Absolute Auto 2.12 K/mm3 (0.9-3.2); Lymphocytes Percent Auto 18.7 % (18.3-44.2); Mean Corpuscular HGB Conc 33.9 g/dl (32-36); Mean Corpuscular Hemoglobin 30.2 pg (26-34); Mean Corpuscular Volume 89.1 fl (80-100); Mean Platelet Volume 9.2 fl (7.4-10.4); Monocytes Percent Auto 8.9 % (2.6-8.5); Neutrophils Percent Auto 70.4 % (45.5-73.1); Platelet Count Result 329 k/mm3 (150-375); Red Cell Distribution Width 11.9 % (11.5-14.5); White Blood Count 11.4 K/mm3 (4.5-10.0)
--- OUTSIDE RECORDS SUMMARY | 2024-11-15 09:07 | XMS_ITS | Encounter Summary ---
Author Organization [facility] Address [facility] [place] [address] Care Team Providers Care Radioactive Waste Disposal Dispatcher Name Role Phone Viktor Amos MD Primary Care Provider [phone] Joao Butterfield Primary Care Provi reynaldo Encounter Details Date Type Department Care Team (Late st Contact Info) Description 05/10/2019 [employer] Message [facility] Family [address] [address] Liliane [facility]al [facility] RE: Medication Questions Social History Tobacco Use [...] on filedocumented in this encounter Care Teams Radioactive Waste Disposal Dispatcher Relationship Specialty Start Date End Date Viktor Amos MD PCP - General FAMILY PRACTICE 06/22/18 01/11/21 Joao Butterfield APNP PCP - General Nurse Practitioner Family 01/12/21 documented as of this encounter
--- OUTSIDE RECORDS SUMMARY | 2024-11-15 09:07 | XMS_ITS | Clinical Summary ---
Author Organization [facility] Address [facility] [place] [address] Care Team Providers Care New Car Get Ready Mechanic Name Role Phone FrancaAshly, Joao MIRAMONTES Primary [...] to complete this topic Insurance Care Teams New Car Get Ready Mechanic Relationship Specialty Start Date End Date Joao Butterfield APNP PCP - General Nurse Practitioner Family 01/12/21
--- OUTSIDE RECORDS SUMMARY | 2024-11-15 09:07 | XMS_ITS | Clinical Summary ---
Author Organization [facility] [employer] Address [address] [place] [address] Care Team Providers Care Bobbin Cleaning Machine Operator Name Role Phone James Huston MD Primary Care Provide r Source Comments [facility] [employer],non-owned Affiliates and Associated Physician Practices is amultiple site organization consisting of ambulatory clinics and hospital sitesin [place], [place], [place] and [place]. This disclosure is being madepursuant to the Care Everywhere program and may not contain all information available regarding this patient. Last updated 18.[facility] [employer] Allergies No known active allergies Medications * Be aware that medications may not be up to date on this document. Alwaysverify current medications with the patient. multivitamins plus minerals chew tablet Take 1 Tab by mouth daily with food Active Active Problems Problem Noted Date Diagnosed Date Syncope 12/25/2015 Assessment & Plan (12/25/2015 11:24 AM CDT): Leslie Caiceod is a 15 y.o. female with a [...] Neg Hx Long QT Syndrome Neg Hx IA<55(male) Neg Hx IA<65(female) Neg Hx Marfan Syndrome Neg Hx Pacemaker [...] complete this topic Insurance ANTH Care Teams Bobbin Cleaning Machine Operator Relationship Specialty Start Date End Date James Huston MD PCP - General Family Medicine 11/06/14
--- OUTSIDE RECORDS SUMMARY | 2024-11-15 09:07 | XMS_ITS | Encounter Summary ---
Author Organization [facility] Address [facility] [place] [address] Care Team Providers Care Working Second Hand Name Role Phone Viktor Amos MD Primary Care Provider [phone] Joao Butterfield Primary Care Provi reynaldo Encounter Details Date Type Department Care Team (Late st Contact Info) Description 04/22/2019 [facility] Message [facility] Medical [facility] Family [address] [id number] [facility] Follow Up/Update Social History Tobacco Use [...] on filedocumented in this encounter Care Teams Working Second Hand Relationship Specialty Start Date End Date Viktor Amos MD PCP - General FAMILY PRACTICE 06/22/18 01/11/21 Joao Butterfield APNP PCP - General Nurse Practitioner Family 01/12/21 documented as of this encounter
[2024-11-15 09:08] LABS: Alanine Aminotransferase 15 U/L (6-35); Albumin Level 4.9 g/dL (3.5-5.1); Alkaline Phosphatase 66 U/L (38-126); Anion Gap 12 mmol/L (4-12); Aspartate Amino Transferase 20 U/L (14-36); Bilirubin,Total 0.8 mg/dL (0.2-1.3); Blood Urea Nitrogen 11 mg/dL (7-17); Calcium 9.1 mg/dL (8.4-10.2); Carbon Dioxide 23 mmol/L (22-30); Chloride 104 mmol/L (98-107); Estimated CRCL calculation 84 ml/min; Estimated Glomerular Filt Rate > 60; Glucose 90 mg/dL (65-110); Lipase 76 U/L (23-300); Potassium 3.7 mmol/L (3.4-5.0); Sodium 139 mmol/L (137-145)
[2024-11-15 09:14] LABS: Partial Thromboplastin Time 28.7 Seconds (22.3-36.8)
[2024-11-15 09:20] LABS: Troponin I < 0.012 ng/mL (0.000-0.034)
[2024-11-15 09:22] LABS: D Dimer < 0.27 ug/mL (<0.48)
[2024-11-15 09:33] LABS: Influenza A QL RT-PCR Negative (Negative); Influenza B QL RT-PCR Negative (Negative); RSV RNA, RT-PCR Negative (Negative); SARS-CoV-2 RNA PCR Negative (Negative)
[2024-11-15 09:43] LABS: BEDSIDEPREGUCG Negative (Negative)
[2024-11-15] MEDS: HYDROmorphone HCL INJ (*CRX) 2 MG/ML VIAL 0.5 MG IV PUSH ×2 (10:22→12:40)
[2024-11-15] MEDS: LIDO 1%/EPINEPHRINE 1:100,000 20 ML VIAL 10 ML INFILTRATE (10:38)
[2024-11-15] MEDS: MIDAZOLAM HCL (*CRX) 2 MG/2 ML VIAL 5 MG IV PUSH (10:38)
--- NOTE | 2024-11-15 12:45 | ADMGEN ---
This patient, Leslie Caicedo, was admitted to IMU Room 209-01 at 1220. Patient/family oriented to hospital policies and general routines including ID bracelet, bed and alarms, visiting hours, pain management, procedures, bathroom and other care routines, personal items, smoking policy, room service/diet, and visiting hours. Information on how to activate the Rapid Response Team has been discussed. Patient/Family are encouraged to report perceived risks to care and to ask questions if they do not understand what they are told or what they should do.
[2024-11-15] MEDS: LACTATED RINGERS 1,000 ML 125 ML IV CONT ×2 (14:00→22:00)
[2024-11-15] MEDS: ONDANSETRON INJ 4 MG/2 ML VIAL IV PUSH (14:29)
--- NOTE | 2024-11-15 19:39 | PM.IMCN ---
Assessment and Plan Assessment and plan (1) Pneumothorax: Qualifiers: Pneumothorax type: postprocedural Qualified Code(s): J95.811 - Postprocedural pneumothorax Code(s): J93.9 - Pneumothorax, unspecified Status: Acute Assessment and Plan: Moderate right-sided pneumothorax secondary to ganglion nerve block performed on 11/13. CXR, initial, 11/15/2024: Moderate size right pneumothorax with mediastinal shift to the left. CXR, initial post chest tube, 11/15/2024: Interval placement of a right-sided chest tube with increase in size of a now moderate to large right pneumothorax with increasing collapse of the right lung and [id number] midline shift consistent with tension pneumothorax. Per discussion with Dr. Apple the patient tube repositioned and a subsequent radiograph was obtained. Follow-up radiographs demonstrate near complete resolution of the right-sided tension pneumothorax. See separate dictation for further detail. CXR, repeat post positioning, 11/15/2024: Right-sided chest tube in good position with only trace minimal residual pneumothorax, as detailed above. Maintain chest tube. Analgesics p.r.n.. - nauseated and somnolent with 0.5 mg of Dilaudid, reduced to 0.25 mg of Dilaudid. +narcan PRN. General surgery primary Supplemental O2: 2L NC, monitor O2 saturation, continue supplemental oxygen to maintain greater than 92%. Patient tolerating poorly, given loratadine and nasal spray for congestion that is very bothersome for the patient. Plan Diet: Regular GI Prophylaxis: Not currently indicated DVT Prophylaxis: SCDs IV fluids: LR at 125 mL/hour Lines/Tubes: Peripheral IV Code Status: Full code HPI Date of Consult Consult date: 11/15/24 Requesting Physician: Antonieta Bustos MD Primary Care Provider: UNKNOWN,DOCTOR Consult Narrative Reason for consult: Pain Management Narrative: 23 y/o F with PMH of PTSD, insomnia, s/p open reduction/internal fixation right distal radius fracture (04/2024) presents here with unilateral chest tightness. The patient presents here from home for further evaluation of right-sided chest tightness. She reports this was precipitated by a ganglion nerve block that was performed on Monday, 11/13, at [facility]. Post procedure she reported right-sided chest tightness, however was initially attributed to the procedure itself. Returning today due to the persistent right-sided chest pain. She describes it as burning, radiation into her upper and lower back bilaterally, constant, aggravated by deep inspiration and movement, and alleviated by holding still. She she reports accompanying shortness of breath and pain with inspiration. She denies fever, chills, body aches, nausea, vomiting, diarrhea, dizziness. Initial VS at presentation: 98.3? F, HR 83, R 15, 126/83, and 100% on RA. ED workup showed: WBC 11.4, no anemia, normal coags, negative D-dimer, no significant electrolyte derangements, normal renal function, initial troponin negative, hCG negative, viral PCR negative. Initial CXR showed a moderate sized right pneumothorax with mediastinal shift to the left. Chest tube placed and confirmed in good position via repeat XR. Review of Systems Review of Systems: All systems reviewed & are unremarkable except as noted in HPI and below PMFSH Past Medical History Medical History PTSD (post-traumatic stress disorder) Insomnia Closed fracture of right distal radius Healthy female adult Surgical History Surgical History No history of previous surgery Social History Social History Smoking status: Never smoker Alcohol intake: never Substance use: never Do You Feel Safe in your Home?: Yes Lack of Transportation: No Lack of Food: Never True Current Housing: I Have Housing Concerned About Future Housing: No Difficulty Paying Gas/Electric Bills: No Difficulty Paying for Meds: No Currently Unemployed: No Education: High School Diploma/GED Difficulty w/ Childcare or Family Care: No Living arrangements: with family Spiritual care concerns: No Meds Home Medications and Allergies Home Medications ?Medication ?Instructions ?Recorded ?Confirmed ?Type ibuprofen 800 mg tablet 800 mg PO TID PRN pain #30 tabs 05/15/24 11/15/24 Rx ondansetron 8 mg disintegrating 8 mg PO Q8H PRN nausea and 05/15/24 11/15/24 Rx tablet vomiting #10 tabs polyethylene glycol 3350 17 gram 17 g PO DAILY PRN constipation #14 05/15/24 11/15/24 Rx oral powder packet ea sennosides 8.6 mg-docusate sodium 1 tab-cap PO BID PRN constipation 05/15/24 11/15/24 Rx 50 mg tablet (Senna with Docusate #20 tabs Sodium) oxycodone-acetaminophen 5 mg-325 1 tablet PO Q4H PRN pain #30 tabs 06/04/24 11/15/24 Rx mg tablet gabapentin 300 mg capsule 600 mg PO TID 09/11/24 11/15/24 History Allergies Allergy/AdvReac Type Severity Reaction Status Date / Time adhesive AdvReac Mild Rash Verified 11/15/24 08:44 Vital Signs Vital Signs - 24 hr 11/15/24 08:33 11/15/24 08:36 11/15/24 08:42 Temperature 98.3 F Pulse Rate 83 93 Respiratory Rate 15 12 Blood Pressure 126/83 126/83 Pulse Oximetry 100 100 100 Oxygen Delivery Room Air Room Air Oxygen Flow Rate 11/15/24 08:44 11/15/24 08:47 11/15/24 09:01 Temperature Pulse Rate 97 97 Respiratory Rate 15 Blood Pressure 118/81 Pulse Oximetry 100 100 Oxygen Delivery Room Air Oxygen Flow Rate 11/15/24 09:15 11/15/24 09:16 11/15/24 10:00 Temperature Pulse Rate 106 H 91 104 H Respiratory Rate 13 14 16 Blood Pressure 109/76 108/81 126/83 Pulse Oximetry 100 99 100 Oxygen Delivery Oxygen Flow Rate 11/15/24 10:23 11/15/24 10:28 11/15/24 10:30 Temperature Pulse Rate 122 H 127 H Respiratory Rate 15 17 Blood Pressure Pulse Oximetry 100 100 100 Oxygen Delivery Nasal Cannula Oxygen Flow Rate 2 11/15/24 10:56 11/15/24 11:15 11/15/24 11:30 Temperature Pulse Rate 104 H 94 91 Respiratory Rate 18 16 13 Blood Pressure 103/47 L 111/74 116/66 Pulse Oximetry 96 100 100 Oxygen Delivery Oxygen Flow Rate 11/15/24 11:46 11/15/24 12:00 11/15/24 12:40 Temperature Pulse Rate 73 82 107 H Respiratory Rate 20 14 18 Blood Pressure 106/71 112/71 Pulse Oximetry 100 100 100 Oxygen Delivery Nasal Cannula Oxygen Flow Rate 2 11/15/24 12:48 11/15/24 14:00 11/15/24 16:00 Temperature 98.7 F Pulse Rate 71 115 H 107 H Respiratory Rate 16 18 Blood Pressure 106/73 Pulse Oximetry 100 100 Oxygen Delivery Nasal Cannula Oxygen Flow Rate 2 11/15/24 16:00 11/15/24 16:03 11/15/24 18:00 Temperature 97.9 F Pulse Rate 102 H 107 H 111 H Respiratory Rate 18 Blood Pressure 123/53 L Pulse Oximetry 100 Oxygen Delivery Oxygen Flow Rate Exam Const: General: uncomfortable Other: , female, young adult, distressed due to nasal congestion HENMT: Face/Nose/Sinus: Normal nares present Mouth: Yes dry mucous membranes Eyes: General: appearance normal, both eyes and all related structures Sclera: sclerae normal Pupils: Equal, round and reactive pupils present EOM: EOMs intact bilaterally Chest: Other: Chest tube to right chest wall, tender. Minimal serosanguineous output. Resp: Effort & Inspection: normal respiratory effort Auscultation: clear to auscultation bilaterally Other: Nasal cannula place, tolerating poorly. GI: Other: Abdomen soft, nondistended, nontender. Normoactive bowel sounds in all quadrants. Skin: General skin exam: normal color and no rashes or lesions noted Wounds: no wounds Extrem: General: normal to inspection Psych: Mental Status: mental status grossly normal Affect: Anxious affect present Other: Good insight and judgment, pleasant Results Labs 11/15/24 08:48 11/15/24 08:48 Labs: Short CBC 11/15/24 Range/Units 08:48 WBC 11.4 H (4.5-10.0) K/mm3 Hgb 14.2 (12.0-15.0) g/dL Hct 41.9 (37.0-47.0) % Plt Count 329 (150-375) k/mm3 [facility] 11/15/24 08:48 Sodium 139 Potassium 3.7 Chloride 104 Carbon Dioxide 23 BUN 11 Creatinine 0.76 Glucose 90 Calcium 9.1 Cardiac Enzymes 11/15/24 Range/Units 08:48 Troponin I < 0.012 (0.000-0.034) ng/mL Liver Function 11/15/24 Range/Units 08:48 Total Bilirubin 0.8 (0.2-1.3) mg/dL AST 20 (14-36) U/L ALT 15 (6-35) U/L Alkaline Phosphatase 66 (38-126) U/L Albumin 4.9 (3.5-5.1) g/dL Quality VTE Prophylaxis VTE prophylaxis: mechanical ordered Hospitalist MIPS Advance Care Plan I have confirmed that the patient's Advanced Care Plan is present, code status is documented, or surrogate decision maker is listed in patient medical record.: Yes Medication Reconciliation I have utilized all available resources to obtain, update and review the patients current medications (includes all prescriptions, OTC, herbals, cannabis, and nutritional supplements).: Yes
[2024-11-15] MEDS: IBUPROFEN 600 MG TABLET PO (20:07)
[2024-11-15] MEDS: LORATADINE 10 MG TABLET PO (21:00)
[2024-11-15] MEDS: SALINE 0.65% NAS SOLN 44 ML BTL 1 SPRAY NASAL (21:00)
[2024-11-15] MEDS: diphenhydrAMINE HCl INJ 50 MG/ML VIAL 25 MG IV PUSH (22:50)
[2024-11-16] VITALS (17 sets, daily range): BP systolic 107–121; BP diastolic 58–68; PULSE 65–99; RESP 17–20; TEMP 36.4–37.2; O2SAT 99–100
[2024-11-16] MEDS: LACTATED RINGERS 1,000 ML 125 ML IV CONT ×2 (06:52→14:57)
[2024-11-16] MEDS: IBUPROFEN 600 MG TABLET PO ×2 (06:53→12:31)
--- NOTE | 2024-11-16 07:05 | PC.NURSE ---
Received call from Dr Kuo-morning Xray shows right chest tube proximal side port is now positioned extra pleurally and there is a small amount of gas. Assessed patient with Jennifer Jarrett RN and chest tube shows no sign of leaking, dressing is intact, and Jennifer states dressing and chest tube looks exactly the same. Patient has no SOB. Dr [place] made aware and call placed to Dr Bustos.
[2024-11-16] MEDS: ACETAMINOPHEN 325 MG TABLET 650 MG PO ×2 (11:17→18:37)
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
[2024-11-16 13:23] LABS: Lactate Dehydrogenase 119 U/L (120-246); Uric Acid 3.1 mg/dL (2.5-7.5)
--- NOTE | 2024-11-16 13:28 | PM.IMHP ---
H&P: HPI History of Present Illness Date/Time: 11/16/24 13:28 Chief Complaint: Right pneumothorax Narrative: The patient is a 24-year-old female that presented to the emergency department complaining of right-sided chest tightness, shortness of breath. The patient reports that she had a right ganglion nerve block done on 11/13 and immediately felt symptoms afterwards. She reports the symptoms progressively worsened throughout the next few days. Workup in the emergency department, including imaging, was significant for a moderate size right pneumothorax. A small chest tube was placed in the emergency department and the patient has been admitted for further evaluation and care. Review of Systems Review of Systems: All systems reviewed & are unremarkable except as noted in HPI and below PMFSH Past Medical History Medical History PTSD (post-traumatic stress disorder) Insomnia Closed fracture of right distal radius Healthy female adult Surgical History Surgical History No history of previous surgery Social History Social History Smoking status: Never smoker Alcohol intake: never Substance use: never Do You Feel Safe in your Home?: Yes Lack of Transportation: No Lack of Food: Never True Current Housing: I Have Housing Concerned About Future Housing: No Difficulty Paying Gas/Electric Bills: No Difficulty Paying for Meds: No Currently Unemployed: No Education: High School Diploma/GED Difficulty w/ Childcare or Family Care: No Living arrangements: with family Spiritual care concerns: No Meds Home Medications and Allergies Home Medications ?Medication ?Instructions ?Recorded ?Confirmed ?Type ibuprofen 800 mg tablet 800 mg PO TID PRN pain #30 tabs 05/15/24 11/15/24 Rx ondansetron 8 mg disintegrating 8 mg PO Q8H PRN nausea and 05/15/24 11/15/24 Rx tablet vomiting #10 tabs polyethylene glycol 3350 17 gram 17 g PO DAILY PRN constipation #14 05/15/24 11/15/24 Rx oral powder packet ea sennosides 8.6 mg-docusate sodium 1 tab-cap PO BID PRN constipation 05/15/24 11/15/24 Rx 50 mg tablet (Senna with Docusate #20 tabs Sodium) oxycodone-acetaminophen 5 mg-325 1 tablet PO Q4H PRN pain #30 tabs 06/04/24 11/15/24 Rx mg tablet gabapentin 300 mg capsule 600 mg PO TID 09/11/24 11/15/24 History Allergies Allergy/AdvReac Type Severity Reaction Status Date / Time adhesive AdvReac Mild Rash Verified 11/15/24 08:44 Vital Signs Vital Signs - 24 hr 11/15/24 14:00 11/15/24 16:00 11/15/24 16:00 Temperature Pulse Rate 115 H 107 H 102 H Respiratory Rate 18 Blood Pressure Pulse Oximetry 100 Oxygen Delivery Nasal Cannula Oxygen Flow Rate 2 11/15/24 16:03 11/15/24 18:00 11/15/24 19:40 Temperature 36.6 C 36.8 C Pulse Rate 107 H 111 H 105 H Respiratory Rate 18 18 Blood Pressure 123/53 L 111/75 Pulse Oximetry 100 98 Oxygen Delivery Oxygen Flow Rate 11/15/24 20:00 11/15/24 20:00 11/15/24 22:00 Temperature Pulse Rate 114 H 92 Respiratory Rate Blood Pressure Pulse Oximetry 100 Oxygen Delivery Nasal Cannula Oxygen Flow Rate 2 11/15/24 23:40 11/16/24 00:00 11/16/24 00:00 Temperature 36.6 C Pulse Rate 90 78 Respiratory Rate 17 Blood Pressure 112/64 Pulse Oximetry 100 99 Oxygen Delivery Nasal Cannula Oxygen Flow Rate 1 11/16/24 02:00 11/16/24 04:00 11/16/24 04:00 Temperature 36.4 C Pulse Rate 72 95 Respiratory Rate 17 Blood Pressure 117/58 L Pulse Oximetry 99 99 Oxygen Delivery Nasal Cannula Oxygen Flow Rate 1 11/16/24 04:00 11/16/24 06:00 11/16/24 07:40 Temperature Pulse Rate 65 73 Respiratory Rate Blood Pressure Pulse Oximetry 100 Oxygen Delivery Nasal Cannula Oxygen Flow Rate 1 11/16/24 08:00 11/16/24 08:00 11/16/24 08:17 Temperature 37.2 C Pulse Rate 93 99 Respiratory Rate 20 Blood Pressure 121/63 Pulse Oximetry 100 100 Oxygen Delivery Nasal Cannula Oxygen Flow Rate 1 11/16/24 10:00 11/16/24 12:29 Temperature 36.9 C Pulse Rate 76 89 Respiratory Rate Blood Pressure 107/63 Pulse Oximetry 100 Oxygen Delivery Oxygen Flow Rate Exam Const: General: cooperative, comfortable and no acute distress HENMT: Head: normal to inspection and normocephalic Eyes: General: appearance normal, both eyes and all related structures Neck: Neck: normal visual inspection, full ROM and no lymphadenopathy Chest: Chest palpation & inspection: normal inspection of the chest Other: Right-sided chest tube - no air leak Resp: Effort & Inspection: normal respiratory effort Cardio: Rate: regular rate Rhythm: regular rhythm GI: Inspection: normal to inspection and non-distended GI Palp: No abdominal tenderness and Yes Soft to palpation Skin: General skin exam: normal color and no rashes or lesions noted Neuro: General: patient oriented x3 and CN's II-XI intact bilaterally Extrem: General: normal to inspection and full ROM Assessment and Plan Assessment and plan (1) Pneumothorax: Qualifiers: Pneumothorax type: postprocedural Qualified Code(s): J95.811 - Postprocedural pneumothorax Code(s): J93.9 - Pneumothorax, unspecified Status: Acute Assessment and Plan: chest tube slightly dislodged, largely resolved right pneumothorax at this point, will place chest tube to water seal, recheck chest x-ray in 2 hours and if now worsening will likely dc chest tube
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
--- NOTE | 2024-11-16 19:28 | P.OPB_ITS ---
Procedure Note - Brief Procedure Note - Brief Date of procedure: 11/16/24 right sided pneumothorax Procedure performed: chest tube removal Surgeon: Mey Alvarez MD Inspector Advanced Composite: Marielos STOKES Description of procedure: The patient rolled onto her left side. I removed the dressing, snipped the single suture around the small chest tube, had her take a big breath in, and pulled it out. Petroleum gauze and 4 x 4s placed over the site, and paper tape used as she is allergic to other tapes. She feels fine. O2 is off. CXR is pending for tomorrow am. Estimated blood loss (mL): 0 Total Tourniquet Time: NA IV fluids (mL): 0 Urine output (mL): 0
[2024-11-17] VITALS (7 sets, daily range): BP systolic 103–112; BP diastolic 56–77; PULSE 60–106; RESP 12–18; TEMP 36.6–37.1; O2SAT 99–100
[2024-11-17 08:25] LABS: Hematocrit 38.1 % (37.0-47.0); Hemoglobin 12.4 g/dL (12.0-15.0); Mean Corpuscular HGB Conc 32.5 g/dl (32-36); Mean Corpuscular Hemoglobin 30.1 pg (26-34); Mean Corpuscular Volume 92.5 fl (80-100); Mean Platelet Volume 8.9 fl (7.4-10.4); Platelet Count Result 273 k/mm3 (150-375); Red Blood Count 4.12 M/mm3 (4.2-5.4); Red Cell Distribution Width 11.9 % (11.5-14.5); White Blood Count 6.9 K/mm3 (4.5-10.0)
[2024-11-17 08:47] LABS: Alanine Aminotransferase 16 U/L (6-35); Albumin Level 4.1 g/dL (3.5-5.1); Alkaline Phosphatase 52 U/L (38-126); Anion Gap 6 mmol/L (4-12); Aspartate Amino Transferase 22 U/L (14-36); Bilirubin,Total 0.7 mg/dL (0.2-1.3); Blood Urea Nitrogen 9 mg/dL (7-17); Calcium 8.6 mg/dL (8.4-10.2); Carbon Dioxide 28 mmol/L (22-30); Chloride 105 mmol/L (98-107); Estimated CRCL calculation 99 ml/min; Estimated Glomerular Filt Rate > 60; Glucose 114 mg/dL (65-110); Potassium 3.9 mmol/L (3.4-5.0); Sodium 139 mmol/L (137-145)
--- NOTE | 2024-11-17 09:24 | P.DS_ITS ---
DS: Admitting Diagnosis Discharge Date 11/17/2024 Admitting Diagnosis Iatrogenic right pneumothorax DS: Discharge Diagnosis Discharge Diagnosis (1) Pneumothorax: Qualifiers: Pneumothorax type: postprocedural Qualified Code(s): J95.811 - Postprocedural pneumothorax Code(s): J93.9 - Pneumothorax, unspecified Status: Acute Assessment and Plan: Resolved status post right-sided chest tube and subsequent removal, continue deep breathing exercises, local wound care, follow-up 2 weeks DS: Summary Hospital Course Reason for hospitalization: Iatrogenic right pneumothorax Hospital Course: The patient is a 24-year-old that presented to the emergency department complaining of right-sided chest tightness, shortness of breath. Workup, including imaging, was significant for moderate size right-sided pneumothorax. The patient [facility] and reported the symptoms started almost immediately afterwards. A small chest tube was placed by the emergency department and the patient was admitted to the surgical service. The pneumothorax was largely resolved after chest tube placement. Patient did continue to complain of pain and shortness of breath. Subsequent Medical and Pulmonary consult were obtained. The patient was placed on some supplemental oxygen. On hospital day 1., the patient began to feel somewhat better. The chest tube was placed to water seal. Post water seal chest x-ray showed resolution of the pneumothorax and later in the day the chest tube was subsequently removed. The patient has done well overnight and on hospital day 2., chest x-ray shows no residual pneumothorax after chest tube removal. The patient will now be discharged home with instructions for continued deep breathing exercises and local wound care. She will follow up in 2 weeks. Status at Discharge Functional status at discharge: independent ambulation Overall status at discharge: patient is progressing back to baseline Time Spent with Patient Time attestation: Total time spent providing and/or coordinating discharge services: Time spent: Less than 30 minutes Exam Const: General: cooperative, comfortable and no acute distress Chest: Other: dressing C/D/I Resp: Auscultation: clear to auscultation bilaterally Cardio: Rate: regular rate Rhythm: regular rhythm GI: Inspection: normal to inspection DS: Data Data Completed and Pending Labs on day of discharge: Labs from last 24 hours 11/17/24 11/16/24 08:18 12:58 WBC 6.9 RBC 4.12 L Hgb 12.4 Hct 38.1 MCV 92.5 MCH 30.1 MCHC 32.5 RDW 11.9 Plt Count 273 MPV 8.9 Sodium 139 Potassium 3.9 Chloride 105 Carbon Dioxide 28 Anion Gap 6 BUN 9 Creatinine 0.65 L Estim Creat Clear Calc 99 Estimated GFR > 60 Glucose 114 H Uric Acid 3.1 Calcium 8.6 Total Bilirubin 0.7 AST 22 ALT 16 Alkaline Phosphatase 52 Lactate Dehydrogenase 119 L Total Protein 7.0 Albumin 4.1 [id number] Pending Homocysteine Pending Discharge Plan Discharge Attending physician on discharge: Antonieta Bustos Consulting providers: Ania Nolan; Almas Soto; Mey Alvarez Discharging Clinician: Antonieta Bustos Anticipated Discharge Date/Time: 11/17/24 09:23 Patient Disposition: Home Activity: as tolerated Diet: as tolerated Patient Instructions: Antibiotic Form Patient Language: [place] Stand Alone Forms: General Discharge Information Follow-up/Referrals: Antonieta Bustso MD [Physician] - 2 Weeks Discharge Medications: Continued gabapentin 300 mg capsule 600 mg PO TID oxycodone-acetaminophen 5-325 mg tablet 1 tablet PO Q4H PRN (Reason: pain) Qty: 30 0RF polyethylene glycol 3350 17 gram powder in packet 17 g PO DAILY PRN (Reason: constipation) Qty: 14 1RF ondansetron 8 mg tablet,disintegrating 8 mg PO Q8H PRN (Reason: nausea and vomiting) Qty: 10 1RF sennosides-docusate sodium [Senna with Docusate Sodium] 8.6-50 mg tablet 1 tab-cap PO BID PRN (Reason: constipation) Qty: 20 1RF ibuprofen 800 mg tablet 800 mg PO TID PRN (Reason: pain) Qty: 30 1RF Date of admission: 11/16/24 14:01 Primary Care Provider: UNKNOWN,DOCTOR Admitting Provider: Antonieta Bustos Attending physician on admission: Antonieta Bustos Condition: Stable
[2024-11-18 12:59] LABS: Alpha-1-Antitrypsin, QN 138 mg/dL (83-199)
[2024-11-18 13:29] LABS: Homocysteine 5.3 umol/L (<10.4)
== END 2024-11-17 11:09 | disposition home or self-care (01) | DRG 201 ==
LOC: ANHED 08:55 → ANHIMU 11:51
PROVIDERS: General Practice; Admitting Provider Surgery; Emergency Provider Emergency Medicine; Visit Provider Surgery
DX: J95.811 Postprocedural pneumothorax (principal); F43.10 Post-traumatic stress disorder, unspecified; Z20.822 Contact with and (suspected) exposure to COVID-19; M25.531 Pain in right wrist; G89.21 Chronic pain due to trauma; S62.101S Fracture of unspecified carpal bone, right wrist, sequela
CPT/HCPCS: 32551; 36415; 71045; 71046; 80053; 81025; 82103; 83090; 83615; 83690; 84484; 84550; 85025; 85027; 85380; 85610; 85730; 87637; 93005; 96361; 96374; 96375; 96376; 99291; A9270; C1729; G0378; J1171; J1200; J1885; J2004; J2060; J2250; J2405; J7120